=== PATIENT | male | born 1950 | race Caucasian/White ===

== ENCOUNTER 2021-08-07 08:07 | Day surgery (SDC) | payer MEDICARE ==
[~2021-08-07] VITALS: Ht 177.8 cm; Wt 91.7 kg
[2021-08-07] MEDS ORDERED: PRINIVIL10 MG PO (08:21)
[2021-08-07] MEDS ORDERED: PROPECIA1 MG PO (08:22)
[2021-08-07] MEDS ORDERED: FLOMAX 0.40.4 MG/CAP PO (08:22)
[2021-08-07 08:32] VITALS: BP 116/91; PULSE 59; TEMP 97.7
[2021-08-07 09:50] VITALS: BP 126/91; PULSE 51
--- NOTE | 2021-08-07 09:50 | NUR ---
Patient returns to [facility] per cart after having colonoscopy and transfers from cart to recliner with one person assist. IV fluids infusing and site is free for redness. Denies pain or nausea.
--- NOTE | 2021-08-07 09:55 | NUR ---
Dr. Hale in the room and talks with the patient and spouse. All questions answered.
[2021-08-07 10:05] VITALS: BP 126/91; PULSE 52
--- NOTE | 2021-08-07 10:05 | NUR ---
Resting and talks with spouse.
[2021-08-07 10:20] VITALS: BP 123/86; PULSE 53
--- NOTE | 2021-08-07 10:20 | NUR ---
Tolerated glass of water and states will eat after being discharged.
--- NOTE | 2021-08-07 10:30 | NUR ---
Dismissal instructions given. Patient dismissed to home driven by spouse and taken to the front door per wheelchair and assisted into vehicle with instructions in hand.
== END 2021-08-07 10:30 | disposition home or self-care (01) ==
LOC: SDCO 08:07
DX: Z12.11 Encounter for screening for malignant neoplasm of colon (principal); D12.5 Benign neoplasm of sigmoid colon; K57.30 Diverticulosis of large intestine without perforation or abscess without bleeding; I10 Essential (primary) hypertension; M19.90 Unspecified osteoarthritis, unspecified site; Z79.899 Other long term (current) drug therapy
CPT/HCPCS: J2704; J7120

== ENCOUNTER → 2022-05-20 | Outpatient (CLI) | payer MEDICARE ==
[~2022-05-20] MED LIST: FLOMAX 0.40.4 MG/CAP PO; PRINIVIL10 MG PO; PROPECIA1 MG PO
== END ==
LOC: COL.RAD 10:15
DX: K40.90 Unilateral inguinal hernia, without obstruction or gangrene, not specified as recurrent (principal)

== ENCOUNTER → 2023-11-07 | Outpatient (CLI) | payer MEDICARE ==
--- NOTE | 2023-11-02 10:18 | NUR ---
line is busy, unable to leave ms
[2023-11-07] VITALS (13 sets, daily range): BP systolic 133–157; BP diastolic 74–109; PULSE 53–66; TEMP 97.7
[~2023-11-07] VITALS: Ht 177.8 cm; Wt 103.6 kg
[~2023-11-07] MED LIST changes: +CPAP; +PREDNISONE20 MG PO; +ZITHROMAX 250M250 MG PO
[2023-11-07 12:09] LABS: HEMATOCRIT 50.3 % (42.0-52.0); HEMOGLOBIN 16.8 g/dl (13.5-18.0); MEAN CELL VOLUME 81 fl (80.0-100.0); MEAN CORPUSCULAR HEMOGLOBIN 27 pg (27-31); MEAN CORPUSCULAR HGB CONC 33 g/dl (33.0-37.0); PLATELET COUNT 199 K/mm3 (130-400); RED BLOOD COUNT 6.18 M/mm3 (4.20-5.60); REDCELL DISTRIBUTION WIDTH-CV 14.7 % (11.5-14.5)
--- NOTE | 2023-11-07 13:03 | NUR ---
Pt to ct per ambulation. Pt onto ct table in prone position. Monitors applied and O2 on at 2l/nc.
--- NOTE | 2023-11-07 13:19 | NUR ---
Dr Barrientos into room and talks with pt.
--- NOTE | 2023-11-07 13:25 | NUR ---
Specimens obtained and given to Margi in the lab.
== END ==
LOC: COL.RAD 11:19
PROVIDERS: Internal Medicine
DX: C82.14 Follicular lymphoma grade II, lymph nodes of axilla and upper limb (principal)
CPT/HCPCS: 28017; C1830